=== PATIENT | male | born 1985 | race Caucasian/White ===

== ENCOUNTER 2021-01-22 02:00 | Emergency (ER) | payer MEDICAID ==
[~2021-01-22] VITALS: Ht 162.6 cm; Wt 59.0 kg
[2021-01-22 02:10] VITALS: BP 147/85
--- NOTE | 2021-01-22 02:10 | NUR ---
PT TAKEN TO BED #12
[2021-01-22] MEDS ORDERED: IBUPROFEN 800 MG TAB PO ONE (03:45)
--- NOTE | 2021-01-22 04:00 | NUR ---
MEDICATED FOR PAIN
--- NOTE | 2021-01-22 04:26 | NUR ---
OBS PT WALKING TO DOOR OFFERED TO GIVE ACI PT REFUSED. STS. "I JUST WANT TO GET OUT OF HERE, WHICH WAY IS OUT?" THIS RN HAS ACI IN HAND AND HOMELESS RESOURCES PT REFUSES TO ACCEPT EITHER DOCUMENTS AND REFUSES TO SIGN. WALKS OUT ER DOORS WITH STEADY GAIT NAD APPEARS AA/Ox4.
--- NOTE | 2021-01-22 04:37 | NUR ---
ATTEMPT TO D/C PT AND PROVIDE HOMELESS RESOURCES. PT REFUSES TO SIGN AND ACCEPT INFO. STS, "I JUST WANT TO GET OUT OF HERE. WHICH WAY IS OUT?" THIS RN DIRECTS PT TO DOOR AND OFFERS INFO AGAIN PT JUST WALKS PAST THIS RN.
== END 2021-01-22 04:37 | disposition home or self-care (01) ==
LOC: MED 02:00
DX: S09.90XA Unspecified injury of head, initial encounter (principal); W22.8XXA Striking against or struck by other objects, initial encounter; Y93.89 Activity, other specified; Y92.89 Other specified places as the place of occurrence of the external cause; Y99.8 Other external cause status
CPT/HCPCS: 70450; 99284

== ENCOUNTER 2021-03-05 02:34 | Emergency (ER) | payer MEDICAID ==
[~2021-03-05] VITALS: Ht 162.6 cm; Wt 63.5 kg
[2021-03-05 02:40] VITALS: BP 140/90
--- NOTE | 2021-03-05 02:40 | NUR ---
TO BED AMBULATORY
--- NOTE | 2021-03-05 02:48 | NUR ---
received in bed 9 with c/o urticaria over entire body x 3 weeks. Pt states he tried topical benadryl without effect and oral benadryl which did not help.
--- NOTE | 2021-03-05 03:12 | NUR ---
Dr. Barrett examining patient.
[2021-03-05] MEDS ORDERED: hydrOXYzine PAMOATE 25 MG CAP PO STA (03:17)
[2021-03-05] MEDS ORDERED: ATA25 PO (03:26)
[2021-03-05] MEDS ORDERED: KEN.1O80 TP (03:26)
[2021-03-05 03:35] VITALS: BP 140/90
--- NOTE | 2021-03-05 03:35 | NUR ---
Patient discharged with v/s stable. Written and verbal after care instructions given and explained. Patient alert, oriented and verbalized understanding of instructions. Ambulatory with steady gait. All questions addressed prior to discharge. ID band removed. Patient advised to follow up with PMD. Rx of atarax hcl and kenalog 0.1% given. Patient educated on indication of medication including possible reaction and side effects. Opportunity to ask questions provided and answered.
== END 2021-03-05 03:35 | disposition home or self-care (01) ==
LOC: MED 02:34
DX: L25.9 Unspecified contact dermatitis, unspecified cause (principal); F41.9 Anxiety disorder, unspecified; G47.00 Insomnia, unspecified; I10 Essential (primary) hypertension; Z79.899 Other long term (current) drug therapy
CPT/HCPCS: 99283; Q0177